=== PATIENT | female | born 1950 | race Caucasian/White ===

== ENCOUNTER 2018-03-12 15:31 | Emergency (ER) | payer OTHER ==
[~2018-03-12] VITALS: Ht 167.6 cm; Wt 85.3 kg
[2018-03-12 16:20] VITALS: BP 143/69
== END 2018-03-12 17:17 | disposition home or self-care (01) ==
LOC: ER 15:40
DX: S82.832A Other fracture of upper and lower end of left fibula, initial encounter for closed fracture (principal); W10.8XXA Fall (on) (from) other stairs and steps, initial encounter; Y93.01 Activity, walking, marching and hiking; Y92.028 Other place in mobile home as the place of occurrence of the external cause; Y99.8 Other external cause status
CPT/HCPCS: 29515; 73610